=== PATIENT | male | born 1995 | race Caucasian/White ===

== ENCOUNTER 2016-10-18 17:03 | Emergency (ER) | payer OTHER ==
[~2016-10-18] VITALS: Ht 167.6 cm; Wt 61.2 kg
--- NOTE | 2016-10-18 17:28 | ED GI/GU/ABDOMINAL COMPLAINT ---
History of Present Illness General Chief Complaint: Hip Injury Stated Complaint: HIP PAIN Source: patient Exam Limitations: no limitations Vital Signs & Intake/Output Vital Signs & Intake/Output Vital Signs Date Time Temp Pulse Resp B/P B/P Pulse O2 O2 Flow FiO2 Mean Ox Delivery Rate 10/19 2003 98.7 78 18 124/70 97 Room Air 10/18 1705 99.0 77 18 117/68 100 Room Air Allergies Coded Allergies: NO KNOWN ALLERGIES (05/28/11) Reconcile Medications Levothyroxine Sodium 125 MCG TABLET 1 TAB PO DAILY THYROID (Reported) Triage Note: PT TO TRIAGE WITH C/O R HIP PAIN ON/OFF xYEAR. PAIN GETTING WORSE AND NOW 10. DENIES ANY INJURIES. VSS. Triage Nurses Notes Reviewed? yes Duration: 1 year Quality/Severity: moderate Location: right groin Radiation: no radiation Activities at Onset: none No Modifying Factors: none HPI: 21-year-old male comes into emergency room with complaints of right groin pain for one year intermittent. Pain comes and goes. Sharp at times. Patient reports that every time it happens the pain is more severe than the previous episodes. Denies any testicular pain. Denies any urinary symptoms. Worse with certain movements. Denies any vomiting fever or chills. Past History Travel History Traveled to [place] past 21 day No Medical History Any Pertinent Medical History? see below for history Endocrine: hypothyroidism Other Medical Hx: anemia Surgical History Surgical History: non-contributory Psychosocial History What is your primary language Spanish Tobacco Use: Never used Family History Hx Contributory? No Review of Systems Review of Systems Constitutional: Reports: no symptoms. EENTM: Reports: no symptoms. Respiratory: Reports: no symptoms. Cardiovascular: Reports: no symptoms. GI: Reports: see HPI. Genitourinary: Reports: no symptoms. Musculoskeletal: Reports: no symptoms. Skin: Reports: no symptoms. Neurological/Psychological: Reports: no symptoms. Hematologic/Endocrine: Reports: no symptoms. Immunologic/Allergic: Reports: no symptoms. All Other Systems: Reviewed and Negative Physical Exam Physical Exam General Appearance: well developed/nourished, alert, awake Head: atraumatic Eyes: Bilateral: normal appearance, EOMI. Ears, Nose, Throat, Mouth: hearing grossly normal, moist mucous membrane Neck: normal inspection, full range of motion Respiratory: normal breath sounds, no respiratory distress Cardiovascular: regular rate/rhythm Gastrointestinal: soft, non-tender Male Genitals: normal genitalia, no hernia Back: normal inspection Extremities: normal range of motion Neurologic/Psych: awake, alert, oriented x 3, normal gait, normal mood/affect Core Measures ACS in differential dx? No Severe Sepsis Present: No Septic Shock Present: No Progress Differential Diagnosis: appendicitis, biliary colic, bowel obstruction, diverticulitis, gastritis, hepatitis, hernia, hemorrhoids, ischemic bowel, pancreatitis, PUD/GERD, perforated viscous, STD, testicular torsion, ureterolithiasis, urinary retention, urethritis, UTI/pyelo Plan of Care: Orders Procedure Date/time Status URINALYSIS 10/18 1726 Complete COMPREHENSIVE METABOLIC PANEL 10/18 1726 Complete CBC WITHOUT DIFFERENTIAL 10/18 1726 Complete Laboratory Tests 10/18/16 1740: Urine Color STRAW, Urine Clarity CLEAR, Urine pH 6.0, Ur Specific Leiter <= 1.005, Urine Protein TRACE H, Urine Ketones NEG, Urine Nitrite NEG, Urine Bilirubin NEG, Urine Urobilinogen 0.2, Ur Leukocyte Esterase NEG, Ur Microscopic SEDIMENT EXAMINED, Ur Epithelial Cells RARE, Urine Hemoglobin NEG, Urine Glucose NEG 10/18/16 1738: Anion Gap 10, Estimated GFR > 60, BUN/Creatinine Ratio 16.7, Glucose 74, Calcium 9.4, Total Bilirubin 0.7, AST 20, ALT 31, Alkaline Phosphatase 67, Total Protein 7.4, Albumin 4.5, Globulin 2.9, Albumin/Globulin Ratio 1.6, CBC w Diff MAN DIFF ORDERED, RBC 5.22, MCV 52.8 L, MCH 15.5 L, RDW 18.8 H, MPV 10.2, Segmented Neutrophils 77 H, Band Neutrophils 1, Lymphocytes 18 L, Monocytes 4, Polychromasia 1+, Hypochromic-Microcytic 2+, Poikilocytosis 2+, Anisocytosis 2+, Microcytic Cells 3+, Target Cells 1+, Ovalocytes 2+, Elliptocytes FEW, Schistocytes FEW, PUBS MCHC 29.4 L Diagnostic Imaging: Viewed by Me: CT Scan. Discussed w/RAD: CT Scan. Radiology Impression: EXAM TYPE: CAT - CT PELVIS WO IV CONTRAST EXAMINATION: CT PELVIS WITHOUT CONTRAST CLINICAL INFORMATION: Right-sided groin pain. Evaluate for inguinal hernia. COMPARISON: None. TECHNIQUE: Helical scanning was performed with submillimeter collimation through the pelvis. Sagittal and coronal multiplanar 2-D reconstructions were obtained. DLP: 193 mGy-cm FINDINGS: PELVIS: Evaluation of the included portions of the lower abdomen and pelvis demonstrates a moderate amount of retained stool throughout the colon. The bowel gas pattern otherwise appears to be unremarkable, without findings suggestive of small bowel obstruction or ileus. The appendix is not clearly visualized on this exam. No acute inflammatory changes are present within the right lower quadrant of the abdomen. No abnormal soft tissue calcifications are identified. There are no visible stones along the course of the bilateral ureters. There are subcentimeter bilateral inguinal chain lymph nodes visualized measuring up to 6 mm in AP diameter within the right groin and 7 mm in AP diameter within the left groin. There is no significant deep pelvic adenopathy. No significant hernia is identified. OSSEOUS STRUCTURES: No acute osseous abnormality. IMPRESSION: No acute findings within the lower abdomen or pelvis to explain patient symptomatology. No inguinal hernias are identified. There is a moderate amount of retained stool throughout the imaged colon, indicative of constipation. DICTATED BY: PRINCESS COHEN MD DATE/TIME DICTATED:10/18/161930 SALES AND CUSTOMER RELATIONS REP:RAVEN DATE/TIME TRANSCRIBED:10/18/161930 CONFIDENTIAL, DO NOT COPY WITHOUT APPROPRIATE AUTHORIZATION. Initial ED EKG: none Departure Departure Disposition: HOME OR SELF CARE Condition: Stable Clinical Impression Primary Impression: Right inguinal pain Referrals: DOUG COTTO,KATRINA (PCP/Family) CHRISTIE COTTO,AMELIA Farnsworth Additional Instructions: Follow back up with your primary care doctor. Return if any concerns worsening symptoms. Take Motrin or ibuprofen as needed. Consider consulting with a general surgeon. Please go over all results of today's visit with your primary care doctor. Contact your primary care doctor to let them know you were here in the emergency room. There may be nonspecific findings which may not be related to your visit today here in the emergency room but may require further evaluation and chronic monitoring by your primary care doctor. If you had a laceration today the chance of foreign body always remains. You should follow-up with your primary care doctor for recheck in 3-5 days for a wound check. If you had an x-ray done there is a chance that a fracture could have been missed on initial read and you should follow-up with your primary care doctor for repeat x-rays if symptoms persist. If your blood pressure was elevated here in the emergency room please have rechecked by her primary care doctor within the next 48 hours by your primary care doctor. If you were prescribed a narcotic here in the emergency room or any type of controlled substances you're not allowed to drive while taking this medication or operate any type of heavy machinery. Narcotics can make you feel lightheaded dizziness nausea and can cause constipation. You may need to grain picker a stool softener. Thank you for choosing [facility] emergency room. Please return to the emergency room immediately if you have any other concerns worsening of symptoms. Departure Forms: Customer Survey General Discharge Information Comments 10/18/2016 8:11:34 PM Patient clinically looks well. Nontoxic-appearing. No evidence of hernia. No evidence of infection. Muscle strain versus a hernia that is not appreciated on exam or on CAT scan. Referred back to primary care doctor. This has been going on for a year. There is nothing emergent found the patient requires any further evaluation today. Patient is chronically anemic. 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 His father and brother have it as well. He is aware of his anemia.
[2016-10-18] MEDS ORDERED: LEVOTHYROXINE125 MCG PO (17:54)
[2016-10-18 17:59] LABS: HEMATOCRIT 27.6 % (42-52); MEAN CORPUSCULAR HGB 15.5 PG (27.0-31.0); MEAN CORPUSCULAR HGB CONC 29.4 G/DL (33.0-37.0); MEAN CORPUSCULAR VOLUME 52.8 FL (80.0-94.0); MEAN PLATELET VOLUME 10.2 FL (7.4-10.4); RBC DISTRIBUTION WIDTH 18.8 % (11.5-14.5); RED BLOOD CELL CT 5.22 /CUMM (4.70-6.10); WHITE BLOOD CELL COUNT 6.9 /CUMM (4.8-10.8)
[2016-10-18 18:14] LABS: PLATELET COUNT 104 /CUMM (130-400)
--- NOTE | 2016-10-18 19:38 | CT SCAN REPORT ---
EXAMINATION: CT PELVIS WITHOUT CONTRAST CLINICAL INFORMATION: Right-sided groin pain. Evaluate for inguinal hernia. COMPARISON: None. TECHNIQUE: Helical scanning was performed with submillimeter collimation through the pelvis. Sagittal and coronal multiplanar 2-D reconstructions were obtained. DLP: 193 mGy-cm FINDINGS: PELVIS: Evaluation of the included portions of the lower abdomen and pelvis demonstrates a moderate amount of retained stool throughout the colon. The bowel gas pattern otherwise appears to be unremarkable, without findings suggestive of small bowel obstruction or ileus. The appendix is not clearly visualized on this exam. No acute inflammatory changes are present within the right lower quadrant of the abdomen. No abnormal soft tissue calcifications are identified. There are no visible stones along the course of the bilateral ureters. There are subcentimeter bilateral inguinal chain lymph nodes visualized measuring up to 6 mm in AP diameter within the right groin and 7 mm in AP diameter within the left groin. There is no significant deep pelvic adenopathy. No significant hernia is identified. OSSEOUS STRUCTURES: No acute osseous abnormality. IMPRESSION: No acute findings within the lower abdomen or pelvis to explain patient symptomatology. No inguinal hernias are identified. There is a moderate amount of retained stool throughout the imaged colon, indicative of constipation.
[2016-10-18 20:04] VITALS: BP 124/70
== END 2016-10-18 20:05 ==
LOC: ERH 17:03
PROVIDERS: Physician Assistant Medical
DX: R10.31 Right lower quadrant pain (principal)
CPT/HCPCS: 81001